=== PATIENT | male | born 1990 | race Caucasian/White ===

== ENCOUNTER 2017-09-07 01:47 | Emergency (ER) | payer MEDICAID ==
[~2017-09-07] VITALS: Ht 172.7 cm; Wt 73.0 kg
[2017-09-07 02:54] LABS: BASOPHILS % 1.1 % (0.0-2.0); EOSINOPHILS % 4.1 % (0.0-5.0); HEMATOCRIT. 46.5 % (42.0-52.0); HEMOGLOBIN. 15.8 g/dL (14.0-18.0); LYMPHOCYTES % 28.2 % (20.0-50.0); MEAN CORPUSCULAR HEMOGLOBIN 29.9 pg (28.0-32.0); MEAN PLATELET VOLUME 9.4 fl (7.4-10.4); MONOCYTES % 10.6 % (2.0-8.0); PLATELET 221 x1000/uL (130-400); RED BLOOD CELL COUNT 5.28 mill/uL (4.7-6.1); RED CELL DISTRIBUTION WIDTH 13.4 % (11.6-14.6)
[2017-09-07 02:59] LABS: CHLORIDE 103 mEq/L (98-107)
[2017-09-07 03:01] LABS: INR 1.1; PARTIAL THROMBOPLASTIN TIME 26.2 sec (23.4-31.0); PROTHROMBIN TIME 11.6 sec (9.4-11.6)
[2017-09-07 03:07] LABS: CARBON DIOXIDE 26 mEq/L (21-32)
[2017-09-07 03:15] VITALS: BP 128/85
== END 2017-09-07 03:31 | disposition home or self-care (01) ==
LOC: ER 01:47
DX: R04.0 Epistaxis (principal); R51 Headache
CPT/HCPCS: 36415; 80048; 85025; 85610; 85730; 99284